=== PATIENT | female | born 1970 | race African-American/Black ===

== ENCOUNTER 2020-06-20 07:35 | Emergency (ER) | payer OTHER ==
[2020-06-20 07:42] VITALS: BP 114/81; PULSE 90; TEMP 98; BMI 27.6
--- NOTE | 2020-06-20 07:43 | PDOC ---
History of Present Illness - General Chief Complaint: Back Pain Stated Complaint: BACKACHE Time Seen by Provider: 06/20/20 07:41 - History of Present Illness Initial Comments: 06/20/20 07:43 HPI: This is a 49 y/o female with no PMH presenting to the ED because of left lower back pain that started two days ago when she was getting up from sitting to go to the bathroom. She reports a sudden sharp pain on the left side of her lower back radiating down her left leg to her left knee. She has had this pain in the past ever since she had some trauma to her pelvis in 2007. In the past she has been able to control the pain with OTC icy hot and tylenol. She tried these remedies at home, but nothing improved the pain so she came to the emergency department. She denies any associated numbness/tingling in her thighs, lower extremity weakness, inability to ambulate, incontinence, or focal neurological deficits. She reports that she has not followed up as an outpatient with anyone for this. ROS: GENERAL/CONSTITUTIONAL: No fever/chills, diaphoresis, or weakness. HEENT: No change in vision. No ear pain. No sore throat. CARDIOVASCULAR: No chest pain, palpitations or peripheral edema RESPIRATORY: No shortness of breath, dyspnea with exertion, cough, wheezing, or hemoptysis. GASTROINTESTINAL: No abdominal pain, nausea, vomiting, diarrhea or constipation. GENITOURINARY: No dysuria, frequency, or change in urination. MUSCULOSKELETAL: Admits to left lower back pain radiating down the back of her left thight. SKIN: No rash or hives NEUROLOGIC: No headache, vertigo, focal weakness, loss of consciousness, or change in strength/sensation. PMH: Denied PSx: Hysterectomy Social Hx: Admits to tobacco daily. Admits to etoh. Meds: See nurse note Allergies: See nurse note PE: GENERAL: Awake, alert, and fully oriented, in no acute distress. Patient is non- toxic in appearance, however admits to drinking earlier in the evening. HEENT: Normocephalic, atraumatic. PERRLA, EOMI. NECK: Normal ROM and supple. CARDIOVASCULAR: Regular rate and rhythm, normal S1 and S2, no murmurs, rubs or gallops PULMONARY: No respiratory distress. Breath sounds equal, clear to auscultation bilaterally. ABDOMEN: Soft, nontender, normoactive bowel sounds. EXTREMITIES: Normal range of motion, no edema or erythema, no calf tenderness. Straight leg raise negative bilaterally. BACK: No tenderness to palpation in lumbar spine. NEUROLOGICAL: Cranial nerves II through XII grossly intact. Normal speech, normal gait SKIN: Warm, Dry, normal turgor, no rashes or lesions noted. Normal capillary refill. PSYCHIATRIC: Patient is cooperative. MDM: 06/20/20 08:27 This is a 49 y/o female with no PMH presenting to the ED because of left lower back pain that started two days ago when she was getting up from sitting to go to the bathroom. - Per the patient this is a chronic problem, however she is usually able to control the pain at home. - When her regular OTC medications didnt work, she decided to come to the ED. - Patient was ambulating in room upon arrival. - No focal neurological deficits on exam. - Patient is able to ambulate in room. - Patient appears intoxicated. However she is AAOx3. - Has a friend waiting for her in the parking lot to drive her home. - Motrin and lidoderm patch for pain. - Patient would like to go home. - Stable to d/c with pain control and return precautions. - Advised to follow-up as an outpatient with her PCP. Past History - Medical History Allergies/Adverse Reactions: Allergies Allergy/AdvReac Type Severity Reaction Status Date / Time hydrocodone [Hydrocodone] Allergy Severe Verified 05/31/12 15:45 POLLEN Allergy Intermediate Uncoded 05/31/12 17:16 Home Medications: Ambulatory Orders No Home Medications 05/31/12 Anemia: Yes Asthma: No Cancer: No Cardiac Disorders: No CVA: No COPD: No CHF: No Dementia: No Diabetes: No GI Disorders: Yes (GI UPSET; VOMITING) Disorders: No HTN: No Hypercholesterolemia: No Liver Disease: No Seizures: No Thyroid Disease: No - Surgical History Orthopedic Surgery: No - Reproductive History Is Patient Now?: No - Psycho-Social/Smoking History Smoking Status: No Smoking History: Current every day smoker Have you smoked in the past 12 months: Yes Number of Cigarettes Smoked Daily: 8 Information on smoking cessation initiated: No 'Breaking Loose' booklet given: 05/14/12 - Substance Abuse Hx (Audit-C & DAST Scrn) How often the patient has a drink containing alcohol: 2-4 times / month Score: In Men: 4 or > Positive; In Women: 3 or > Positive: 2 Screen Result (Pos requires Nsg. Audit-10AR): Negative *Physical Exam - Vital Signs Last Vital Signs Temp Pulse Resp BP Pulse Ox 98 F 90 18 114/81 99 06/20/20 07:38 06/20/20 07:38 06/20/20 07:38 06/20/20 07:38 06/20/20 07:38 Discharge - Discharge Information Problems reviewed: Yes Clinical Impression/Diagnosis: History of ETOH abuse Back pain Qualifiers: Back pain location: low back pain Chronicity: unspecified Back pain laterality: left Sciatica presence: unspecified whether sciatica present Qualified Code(s): M54.5 - Low back pain Condition: Stable Disposition: HOME - Follow up/Referral Referrals: Corina Spring MD [Primary Care Provider] - - Patient Discharge Instructions Patient Printed Discharge Instructions: DI for Low Back Pain Additional Instructions: Discharge Instructions: You were seen in the emergency department for lower back pain. Home Care and Follow Up: - You may use over the counter medications as needed for pain at home. 650- 1000mg acetaminophen (Tylenol) or 600mg ibuprofen (Motrin or Advil) can be used every 6-8 hours. If needed for continued pain, these medications may be alternated every 3-4 hours. For example, if you take ibuprofen at 9am, you may take acetaminophen at noon, ibuprofen at 3pm, etc. - It is strongly recommended that you take ibuprofen with food to help prevent stomach irritation. If you are taking it for more than a day or two, you may consider taking an acid medication such as Pepcid, available over the counter, to protect your stomach. This should be taken first thing in the morning 30-60 minutes before any food or medications. - You may buy a numbing patch that contains lidocaine (the patch is 4% lidocaine) that can be placed over the areas of greatest pain. The lidocaine patch may be placed for 12 hours then removed for 12 hours. - Try using an ice pack for 20 minutes every hour or a heating pad for additional pain control. These should NOT be used over the lidocaine patch, but you may place them over the areas of pain while the patch is off. - Do not stop moving around. As much as you can tolerate, continue to do light exercise and stretching exercises. Increase your activity level as much as you can tolerate daily. - If your pain does not improve over the next week, please follow up with your primary care doctor. - Seek immediate medical care if you have significant worsening of your symptoms, if you experience numbness or tingling in your legs, have urinary incontinence, trouble walking, or have any other concerns. - Post Discharge Activity
[2020-06-20] MEDS ORDERED: LIDOCAINE 5% TOPICAL PATCH TP ONE (08:24)
[2020-06-20] MEDS ORDERED: IBUPROFEN 600 MG TABLET (FP) PO ONE ×2 (08:24→08:42)
--- NOTE | 2020-06-20 08:31 | PDOC ---
Attending Attestation - Resident Resident Name: Cherise Oviedo - ED Attending Attestation I have performed the following: I have examined & evaluated the patient, The case was reviewed & discussed with the resident, I agree w/resident's findings & plan, Exceptions are as noted - HPI HPI: 06/20/20 08:26 Agree with resident HPI - Physicial Exam PE: 06/20/20 08:26 GENERAL: Awake, alert, and fully oriented, in no acute distress. Pleasant. HEAD: No signs of trauma EYES: PERRLA, EOMI, sclera anicteric, conjunctiva clear ENT: Oropharynx clear without exudates. Moist mucosa. +AOB NECK: Normal ROM, supple, no lymphadenopathy, JVD, or masses LUNGS: Breath sounds equal, clear to auscultation bilaterally. No wheezes, and no crackles HEART: Regular rate and rhythm, normal S1 and S2, no murmurs, rubs or gallops ABDOMEN: Soft, nontender, normoactive bowel sounds. No guarding, no rebound. No masses BACK: No midline cervical, thoracic, lumbar ttp. No stepoffs or deformities. +L lumbar paraspinal ttp. No evidence of trauma EXTREMITIES: Normal range of motion, no edema. No clubbing or cyanosis. No cords, erythema, or tenderness. 2+ peripheral pulses in all extremities NEUROLOGICAL: Normal speech, cranial nerves intact, 5/5 strength in all 4 extremities, normal sensation to light touch in all 4 extremities, normal cerebellar exam, normal gait, normal reflexes and tone SKIN: Warm, Dry, normal turgor, no rashes or lesions noted. - Medical Decision Making 06/20/20 08:28 49yo F hx hysterectmy presents to the ED with 10 years of L lower back abd pain May have tweaked it getting out of bed a few days ago, no tx tried Neurologically intact, no red flag sxs of stool/urine incont or retention. Normal reflexes and tone. Low concern for cauda equina syndrome Likely scaitica or MSK pain Plan for pain control, likely DC Pt AOx3, while drank etoh a few hours ago, based on my clinical judgment has capacity at this time. Able to tandem gait. Friend will be picking her up Ambulating with steady gait I discussed the physical exam findings, ancillary test results and final diagnoses with the patient. I answered all of the patient's questions. The patient was satisfied with the care received and felt comfortable with the discharge plan and treatment plan. The patient will call their primary care physician within 24 hours to arrange follow-up and will return to the Emergency Department with any new, persistent or worsening symptoms. Discharge - Discharge Information Problems reviewed: Yes Clinical Impression/Diagnosis: History of ETOH abuse Back pain Qualifiers: Back pain location: low back pain Chronicity: unspecified Back pain laterality: left Sciatica presence: unspecified whether sciatica present Qualified Code(s): M54.5 - Low back pain Condition: Stable Disposition: HOME - Follow up/Referral Referrals: Corina Spring MD [Primary Care Provider] - - Patient Discharge Instructions Patient Printed Discharge Instructions: DI for Low Back Pain Additional Instructions: Discharge Instructions: You were seen in the emergency department for lower back pain. Home Care and Follow Up: - You may use over the counter medications as needed for pain at home. 650- 1000mg acetaminophen (Tylenol) or 600mg ibuprofen (Motrin or Advil) can be used every 6-8 hours. If needed for continued pain, these medications may be alternated every 3-4 hours. For example, if you take ibuprofen at 9am, you may take acetaminophen at noon, ibuprofen at 3pm, etc. - It is strongly recommended that you take ibuprofen with food to help prevent stomach irritation. If you are taking it for more than a day or two, you may consider taking an acid medication such as Pepcid, available over the counter, to protect your stomach. This should be taken first thing in the morning 30-60 minutes before any food or medications. - You may buy a numbing patch that contains lidocaine (the patch is 4% lidocaine) that can be placed over the areas of greatest pain. The lidocaine patch may be placed for 12 hours then removed for 12 hours. - Try using an ice pack for 20 minutes every hour or a heating pad for additional pain control. These should NOT be used over the lidocaine patch, but you may place them over the areas of pain while the patch is off. - Do not stop moving around. As much as you can tolerate, continue to do light exercise and stretching exercises. Increase your activity level as much as you can tolerate daily. - If your pain does not improve over the next week, please follow up with your primary care doctor. - Seek immediate medical care if you have significant worsening of your symptoms, if you experience numbness or tingling in your legs, have urinary incontinence, trouble walking, or have any other concerns. - Post Discharge Activity
[2020-06-20] MEDS ORDERED: LIDOCAINE 5% TOPICAL PATCH ONE (08:43)
[2020-06-20] MEDS ORDERED: LIDOCAINE PATCH REMOVAL MC SCH (22:00)
== END 2020-06-20 08:54 | disposition home or self-care (01) ==
LOC: JER 07:35
DX: M54.5 Low back pain (principal)
CPT/HCPCS: 99283-25